=== PATIENT | female | born 1990 | race Caucasian/White ===

== ENCOUNTER 2018-10-11 07:58 | Emergency (ER) | payer OTHER ==
[2018-10-11] MEDS ORDERED: NS 0.9% 1000 ML** 1,000 ML IV ONE (08:20)
[2018-10-11] MEDS ORDERED: Metoclopramide IV* 5 MG/ML 2 ML VIAL IV ONE (08:20)
[2018-10-11] MEDS ORDERED: diPHENhydraMINE IV* 50 MG/ML 1 ml VIAL (BENADRYL) IV ONE (08:21)
--- NOTE | 2018-10-11 08:36 | ED ---
Headache - HPI Summary HPI Summary: A 27 y/o female presents to [facility] with a chief complaint of a constant migraine since yesterday morning. She rates her pain as a 7/10 in severity. She reports a Hx of migraines but claims that she hasn't had one this bad in a long time. She reports taking Advil yesterday to no relief. Denies neck stiffness. She also claims that she is photophobic. She denies nausea, vomiting or fevers. She denies taking blood thinners. She doesn't see a neurologist, has not been in the hospital before for migraines and has NKDA. - History Of Current Complaint Chief Complaint: EDHeadache Stated Complaint: HEADACHE SINCE YESTERDAY PER PT Time Seen by Provider: 10/11/18 08:11 Hx Obtained From: Patient Onset/Duration: Sudden Onset, Started days ago, Still Present Initially Headache Was: Moderate Currently Pain Is: Current Pain Scale(0-10)= - 7, Severe Timing: Constant, Days Character: Migraine Location of Headache: Diffuse Radiates to: neck Aggravating Factor: Bright Lights Allevating Factors: Nothing Associated Signs And Symptoms: Nausea, Neck Pain - Allergies/Home Medications Allergies/Adverse Reactions: Allergies Allergy/AdvReac Type Severity Reaction Status Date / Time No Known Allergies Allergy Verified 10/11/18 08:23 PMH/Surg Hx/FS Hx/Imm Hx Endocrine/Hematology History: Denies: Hx Diabetes Cardiovascular History: Denies: Hx Hypertension - Surgical History Surgery Procedure, Year, and Place: none reported Infectious Disease History: No Infectious Disease History: Denies: Traveled Outside the [place] in Last 30 Days - Family History Known Family History: Negative: Hypertension, Diabetes - Social History Alcohol Use: Rare Substance Use Type: Reports: None Smoking Status (MU): Never Smoked Tobacco Review of Systems Negative: Fever, Chills Positive: Photophobia ENT: Other - positive: neck pain without stiffness Negative: Vomiting, Nausea Neurological: Other - Positive: migraine All Other Systems Reviewed And Are Negative: Yes Physical Exam - Summary Physical Exam Summary: GENERAL: Patient is a well-developed and nourished F who is lying comfortable in the stretcher. Patient is not in any acute respiratory distress. HEAD AND FACE: Normocephalic EYES: PERRLA, EOMI x 2. EARS: Hearing grossly intact. MOUTH: Oropharynx within normal limits. NECK: Supple, trachea is midline, no adenopathy, no JVD, no carotid bruit. CHEST: Symmetric, no tenderness at palpation LUNGS: Clear to auscultation bilaterally. No wheezing or crackles. CVS: Regular rate and rhythm, S1 and S2 present, no murmurs or gallops appreciated. ABDOMEN: Soft, non-tender. Bowel sounds are normal. No abdominal abnormal pulsations. EXTREMITIES: Full ROM in all major joints, no edema, no cyanosis or clubbing. NEURO: Alert and oriented x 3. No acute neurological deficits. Speech is normal and follows commands. Cranial nerves II-XII grossly intact, no dysmetria finger to nose, nml heel to holland, no Meningeal sign on exam. SKIN: Dry and warm Triage Information Reviewed: Yes Vital Signs On Initial Exam: Initial Vitals Temp Pulse Resp BP Pulse Ox 98.7 F 82 18 131/72 99 10/11/18 08:04 10/11/18 08:04 10/11/18 08:04 10/11/18 08:04 10/11/18 08:04 Vital Signs Reviewed: Yes Diagnostics - Vital Signs Vital Signs Temp Pulse Resp BP Pulse Ox 10/11/18 08:20 76 119/67 100 10/11/18 08:19 62 100 10/11/18 08:04 98.7 F 82 18 131/72 99 - Laboratory Result Diagrams: 10/11/18 08:33 10/11/18 08:32 Lab Statement: Any lab studies that have been ordered have been reviewed, and results considered in the medical decision making process. Re-Evaluation - Re-Evaluation First Eval Re-Evaluation Time: 09:53 Change: Improved Comment: pain is down to a 4 or 5 out of 10. Second Eval Re-Evaluation Time: 11:10 Change: Improved Comment: Pain is much improved. She is ready for discharge. Headache Course/Dx - Course Course Of Treatment: A 27 y/o female presents to [facility] with a chief complaint of a constant migraine since yesterday morning. Workup is unremarkable. The physical exam was unremarkable. In the ED course the patient was given Benadryl IV, Toradol IV and Reglan IV. Bloodwork and chemistries obtained and are WNL. The patient tested negative for Influenza A and Influezna B. The patient will be discharged with prescriptions for Benadryl, Toradol and Reglan. I discussed results with patient and she reports feeling better. She is hemodynamically stable and safe for discharge. Strict return precautions given and she will otherwise follow up with her PCP. - Diagnoses Provider Diagnoses: Headache Discharge - Sign-Out/Discharge Documenting (check all that apply): Patient Departure - DC Patient Received Moderate/Deep Sedation with Procedure: No - Discharge Plan Condition: Stable Disposition: HOME Prescriptions: diPHENhydraMINE PO* [Benadryl PO 25 MG TAB*] 25 mg PO Q6H PRN #16 tab PRN Reason: Itching Ketorolac TAB * [Toradol TAB *] 10 mg PO Q8H #15 tab Metoclopramide TAB* [Reglan TAB*] 10 mg PO Q6H PRN #12 tab PRN Reason: Nausea Patient Education Materials: Migraine Headache (ED) Referrals: [facility] [place] [facility]FERRAL [Outside] (1-3 days) Additional Instructions: RETURN TO THE EMERGENCY DEPARTMENT FOR CHANGING OR WORSENING SYMPTOMS. - Billing Disposition and Condition Condition: STABLE Disposition: Home - Attestation Statements Document Initiated by Scribe: Yes Documenting Scribe: Dani Ricks Provider For Whom Scribe is Documenting (Include Credential): Roni Prakash MD Scribe Attestation: I, Dani Ricks, scribed for Roni Prakash MD on 10/11/18 at 1834. Scribe Documentation Reviewed: Yes Provider Attestation: The documentation as recorded by the Dani bender accurately reflects the service I personally performed and the decisions made by me, Justina Prakash MD Status of Scribe Document: Viewed
[2018-10-11 08:40] LABS: ABS Basophils 0.1 10^3/ul (0-0.2); ABS Eosinophils 0.2 10^3/ul (0-0.6); ABS Lymphocytes 2.3 10^3/ul (1.0-4.8); ABS Monocytes 0.4 10^3/ul (0-0.8); ABS Neutrophils 4.7 10^3/ul (1.5-7.7); ABS Nucleated RBC 0 10^3/ul; Eosinophil % 2.2 %; Hematocrit 37 % (35-47); Hemoglobin 12.7 g/dl (12.0-16.0); Lymphocyte % 29.8 %; Mean Corpuscular HGB Conc 34 g/dl (31-36); Mean Corpuscular Hemoglobin 30 pg (27-31); Mean Corpuscular Volume 88 fL (80-97); Mean Platelet Volume 7.5 fL (7.4-10.4); Nucleated Red Blood Cells % 0; Platelet Count 311 10^3/ul (150-450); Red Blood Count 4.21 10^6/ul (4.00-5.40); Red Cell Distribution Width 13 % (10.5-15); White Blood Count 7.6 10^3/ul (3.5-10.8)
[2018-10-11 08:44] LABS: Influenza A Molecular NEGATIVE (Negative); Influenza B Molecular NEGATIVE (Negative)
[2018-10-11 08:53] LABS: Activated Partial Thrombo Time 29.3 seconds (26.0-36.3); INR 0.97 (0.77-1.02)
[2018-10-11 08:58] LABS: ALT 9 U/L (7-52); AST 15 U/L (13-39); Albumin 4.1 g/dL (3.2-5.2); Albumin/Globulin Ratio 1.6 (1-3); Alkaline Phosphatase 48 U/L (34-104); Anion Gap 6 mmol/L (2-11); BUN/Creatinine Ratio 23.2 (8-20); Blood Urea Nitrogen 13 mg/dL (6-24); CO2 Carbon Dioxide 24 mmol/L (22-32); Calcium 8.8 mg/dL (8.6-10.3); Chloride 107 mmol/L (101-111); EGFR African American 159.6 (>60); EGFR Non-African American 131.9 (>60); Globulin 2.5 g/dL (2-4); Glucose 90 mg/dL (70-100); Potassium 3.8 mmol/L (3.5-5.0); Sodium 137 mmol/L (135-145); Total Protein 6.6 g/dL (6.4-8.9)
[2018-10-11 09:04] LABS: HCG Pregnancy < 0.60 mIU/mL
[2018-10-11] MEDS ORDERED: Ketorolac INJ* 30 MG/ML 1 ML VIAL IV PUSH ONE (09:53)
[2018-10-11 11:25] VITALS: BP 109/56
== END 2018-10-11 11:24 | disposition home or self-care (01) ==
LOC: ED 07:58
DX: R51 Headache (principal); R11.0 Nausea; M54.2 Cervicalgia
CPT/HCPCS: 36415; 80053; 84702; 85025; 85610; 85730; 96361; 96374; 96375; 99283; J1200; J1885; J2765